=== PATIENT | male | born 1945 | race Caucasian/White ===

== ENCOUNTER 2016-03-27 09:44 | Emergency (ER) | payer MEDICARE ==
[2016-03-27 10:05] VITALS: TEMP 97.5; BMI 27.6
[2016-03-27 10:41] LABS: AUTOMATED BASOPHIL 0.7 % (0-2); AUTOMATED EOSINOPHIL 3.3 % (0-5); AUTOMATED LYMPH 28.1 % (17-44); AUTOMATED MONOCYTE 9.1 % (3-10); AUTOMATED NEUTROPHIL 58.8 % (45-76); MPV 8.5 fL (7.4-10.4)
--- NOTE | 2016-03-27 10:49 | EDPRACDOC ---
- General Information Chief Complaint: Generalized Weakness Stated Complaint: DIZZY Time Seen by Provider: 03/27/16 10:14 Information Source: Patient Home Medications: Home Medications Enalapril Maleate [Vasotec] 20 mg PO DAILY 01/11/12 Aspirin (Enteric Coated) [Ecotrin] 81 mg PO DAILY 03/27/16 Atorvastatin Calcium [Lipitor] 20 mg PO QHS 03/27/16 Multivit-Min/FA/Lycopene/Lut [Centrum Silver Tablet] 1 tab PO DAILY 03/27/16 Allergies/Adverse Reactions: Allergies Allergy/AdvReac Type Severity Reaction Status Date / Time No Known Allergies Allergy Verified 03/27/16 10:01 - History of Present Illness Onset: 3 days HPI: PT WOKE UP 2 DAYS AGO FEELING OFF BALANCE, TODAY WORSE THAN YESTERDAY. NO BLURRED VISION LIKE THE LAST EPISODE. PT WAS SEEN AND EVALUATED THE LAST EPISODE. PT USUAL BP 140/70. TAKES BP MEDS. NO H/O CVA. ED Past Medical History - History Reviewed Yes Nurses notes reviewed and agree except as marked - Patient Medical History Cardiac History: Reports: Hypertension, Hypercholesterolemia GI/ History: Reports: Kidney Stones Musculoskeletal History: Reports: Arthritis (RT SHOULDER, RT KNEE) Psychological History: Denies: Depression Surgical History: Reports: Appendectomy - Family Medical History Reports: Hypertension (SISTER), Diabetes (SISTER), Cardiac Disorders (BROTHER). Denies: Cancer, Stroke - Social Medical History Smoking Status: Never smoker EDM Review of Systems - Review of Systems ROS Negative Except as Marked: Yes All systems reviewed and were negative except as marked Constitutional: No Symptoms Reported. negative: Fever Respiratory: No Symptoms Reported Cardiovascular: No Symptoms Reported Gastrointestinal: No Symptoms Reported. negative: Nausea, Vomiting Genitourinary: No Symptoms Reported Neurological: Dizziness - Physical Exam Constitutional: Alert (Awake), No apparent distress Oriented to: Time, Person, Place Last recorded Vital Signs: Last Vital Signs Temp 97.5 F 03/27/16 10:01 Pulse 68 03/27/16 10:01 Resp 20 03/27/16 10:01 BP 172/81 03/27/16 10:01 Pulse Ox 99 03/27/16 10:01 Oxygen Pulse Oxygen Saturation 99 O2 Device Room Air Oxygen Flow Rate Fraction of Inspired Oxygen ( FIO2) - HEENT Head: Normal ( normocephalic) Eye Exam: Normal (PERRL, EOMI, Sclera white) Oropharynx: Normal (Pharynx:Moist without exudate,Gums-no swelling) Nose: No Symptoms Reported (septum midline) Neck: Normal (FROM, trachea at midline) - Respiratory/Cardiovascular Respiratory: Normal - CTA (BBS clear to auscultation without adventitious sounds ) Cardiovascular: Normal (RRR without murmur, gallop or rub) - GI Auscultation: Normal (NABS) Palpation: Normal (Soft,No rebound or guarding, non distended) Tenderness: Non tender Rust's Sign: Negative - Musculoskeletal Back: Normal (Non-Tender) Extremities: Normal (Normal tone, Pulses 2+ No cyanosis or edema, FROM) - Integumentary Skin: Normal, Warm, Dry Lymphatics: Normal (no adenopathy) - Neurologic Memory Impaired: Normal Motor Function: Normal (Normal tone, Pulses 2+ No cyanosis or edema, FROM) Cranial Nerve: Normal (CN II-X11 intact sensation, strength 5/5) Cerebellar: Normal Mood Description: Normal Perception: Normal - Results 03/27/16 10:29 03/27/16 10:29 - EKG EKG #1 EKG Time: 10:44 -: Yes EKG interpreted by me Rate: bpm: 62 [place]: Normal Rhythm: NSR Block: None Hypertrophy: None ST: Normal Comments: NORMAL EKG Decision Time to Discharge: 12:13 - Departure Yes I personally saw and evaluated the patient. Disposition: Home Condition: Stable Final Diagnosis: Vertigo Instructions: Vertigo (ED) Education/Counseling Given To: Patient, Family Member Education/Counseling Given Regarding: Diagnosis Referrals: Cristi Bates MD [Primary Care Provider] - One Week Prescriptions: No Action Enalapril Maleate [Vasotec] 20 mg PO DAILY Atorvastatin Calcium [Lipitor] 20 mg PO QHS Aspirin (Enteric Coated) [Ecotrin] 81 mg PO DAILY Multivit-Min/FA/Lycopene/Lut [Centrum Silver Tablet] 1 tab PO DAILY
--- NOTE | 2016-03-27 10:56 | DIRPT ---
CLINICAL DATA: Dizziness for 3 days. Initial encounter. EXAM: PORTABLE CHEST 1 VIEW COMPARISON: None. FINDINGS: The lungs are clear. Heart size is normal. No pneumothorax or pleural effusion. No focal bony abnormality. IMPRESSION: Negative chest. Electronically Signed By: Cricket Carlos M.D. On: 03/27/2016 10:54
[2016-03-27 10:58] LABS: BLOOD UREA NITROGEN 22 MG/DL (9-20); CALCIUM 9.3 MG/DL (8.4-10.2); CALCULATED OSMOLALITY 272 MOs/Kg (270-290); CHLORIDE 104 mEq/L (98-107); GLUCOSE 108 mg/dL (70-99); PARTIAL THROMB. TIME 21.4 SEC (22-35); SODIUM LEVEL 139 mEq/L (137-146); TOTAL PROTEIN 7.1 G/DL (6.3-8.2)
--- NOTE | 2016-03-27 11:28 | DIRPT ---
CLINICAL DATA: Dizziness EXAM: CT HEAD WITHOUT CONTRAST TECHNIQUE: Contiguous axial images were obtained from the base of the skull through the vertex without intravenous contrast. COMPARISON: None. FINDINGS: The bony calvarium is intact. No gross soft tissue abnormality is seen. No findings to suggest acute hemorrhage, acute infarction or space-occupying mass lesion are noted. Mild atrophic changes are noted. IMPRESSION: Mild atrophic changes without acute abnormality. Electronically Signed By: Martínez Espinal M.D. On: 03/27/2016 11:26
[2016-03-27 12:11] VITALS: BP 165/83; PULSE 59
== END 2016-03-27 12:15 | disposition home or self-care (01) ==
LOC: ED 09:44
DX: R42 Dizziness and giddiness (principal)
CPT/HCPCS: 36415; 70450; 71010; 80053; 84484; 85025; 85610; 85730; 93005; 99284